=== PATIENT | male | born 1975 | race Caucasian/White ===

== ENCOUNTER 2019-09-09 08:58 | Emergency (ER) | payer MEDICAID ==
[~2019-09-09] VITALS: Ht 167.6 cm; Wt 75.0 kg
[~2019-09-09 08:58] MED LIST: CLIN-14 PO; IBUP-814 PO; NYST30CR2 TP
--- NOTE | 2019-09-09 09:16 | NUR ---
CHARTING DONE AT 0915 DONE BY ME ALMA ROSA NATH RN
[2019-09-09] MEDS ORDERED: ondansetron/PF 4mg/2ml inj IV ONE ×2 (09:20→10:25)
[2019-09-09] MEDS ORDERED: fentaNYL/PF 50MCG/1 ML 2ML syringe IV ONE ×2 (09:20→10:25)
[2019-09-09] MEDS ORDERED: iohexol 300mg/ml 100ml inj. ONE (09:26)
--- NOTE | 2019-09-09 09:30 | NUR ---
informed rita arauz of sb of 33, crash cart to bedside
[2019-09-09] MEDS ORDERED: proCHLORperazine 10 MG/2 ml inj IV ONE (09:40)
--- NOTE | 2019-09-09 09:55 | NUR ---
TO CT SCAN WITH PATIENT MONITORED
--- NOTE | 2019-09-09 10:00 | NUR ---
CALLED TO ER TO PREPARE FOR TRANSFER FOR NEUROSX
--- NOTE | 2019-09-09 10:05 | NUR ---
HEART RATE OF 35 SB AGAIN NOTED AND INFORMED BRIAN PEREZ AND DR CASAS AND INCREASING AND PERSISTENT HEAD PAIN, CRASH CART AT BEDSIDE, PACER PADS ON PATIENT
[2019-09-09 10:11] LABS: BASOPHILS % (AUTO) 0.3 % (0-1); EOSINOPHILS # (AUTO) 0.2 X10'3 (0-0.9); EOSINOPHILS % (AUTO) 1.8 % (0-6); HEMATOCRIT 46.2 % (42.0-52.0); HEMOGLOBIN 16.1 g/dl (14.0-17.9); LYMPHOCYTES # (AUTO) 2.1 X10'3 (1.1-4.8); LYMPHOCYTES % (AUTO) 20.8 % (21-51); MEAN CORPUSCULAR HEMOGLOBIN 29.6 PG (27.0-31.0); MEAN CORPUSCULAR HGB CONC 34.9 g/dL (33.0-36.5); MEAN CORPUSCULAR VOLUME 84.8 FL (78-98); MEAN PLATELET VOLUME 8.8 FL (7.4-10.4); MONOCYTES # (AUTO) 0.8 X10'3 (0-0.9); MONOCYTES % (AUTO) 7.7 % (2-12); NEUTROPHILS # (AUTO) 6.9 X10'3 (1.8-7.7); NEUTROPHILS % (AUTO) 69.4 % (42-75); PLATELET COUNT 276 X10'3 (140-440); RED BLOOD COUNT 5.45 X10'6 (4.70-6.10); RED CELL DISTRIBUTION WIDTH 13.9 % (11.5-14.5)
[2019-09-09 10:17] LABS: PARTIAL THROMBOPLASTIN TIME 25 SECONDS (22-32)
[2019-09-09 10:18] LABS: ALANINE AMINOTRANSFERASE 32 U/L (12-78); ALBUMIN 4.2 G/DL (3.4-5.0); ALBUMIN/GLOBULIN RATIO 1.4 (1.1-1.5); ALKALINE PHOSPHATASE 74 IU/L (46-116); ANION GAP 10 (8-16); ASPARTATE AMINO TRANSFERASE 24 U/L (10-37); BILIRUBIN,TOTAL 0.4 MG/DL (0.1-1.0); BLOOD UREA NITROGEN 18 MG/DL (7-18); BUN/CREATININE RATIO 16.1 (5.4-32.0); CALCIUM 8.7 MG/DL (8.5-10.1); CHLORIDE 105 MMOL/L (99-107); CREATININE 1.12 MG/DL (0.60-1.10); GLUCOSE 108 MG/DL (70-104); POTASSIUM 3.7 MMOL/L (3.5-5.1); SODIUM 139 MMOL/L (135-145); TOTAL CARBON DIOXIDE 23.6 MMOL/L (24-32); TOTAL PROTEIN 7.3 G/DL (6.4-8.2); eGFR 72 ML/MIN
[2019-09-09 10:27] LABS: AMYLASE 45 U/L (25-115); CREATINE KINASE 261 U/L (39-308); LIPASE 70 U/L (73-393); TROPONIN I < 0.04 NG/ML (0.0-0.05)
[2019-09-09 10:33] LABS: ETHANOL < 0.010 GM/DL (0.0-0.010)
[2019-09-09] MEDS ORDERED: atropine 1 MG/1 ML vial IV ONE (10:35)
--- NOTE | 2019-09-09 10:45 | NUR ---
PHONE REPORT TO [facility]. INFORMED OF CURRENT NEURO STATUS, PUPILS SLUGGISH/EQUAL, PATIENT NOW SLIGHTLY LETHARGIC: RECENTLY RECEIVED 100 MCG OF FENTANYL, LEFT ARM/LEFT LEG WEAKNESS: NO DECREASED SENSATION, DISCRIMINATION INTACT, RIGHT EYE BRUISING PERSISTENT UNRELENTING HTROBBING HEADACHE, NOW WORSE ON LEFT DISCUSSED LABS/ VITALS PATIENT CONDITION
[2019-09-09 11:00] VITALS: BP 124/86
--- NOTE | 2019-09-09 11:01 | NUR ---
TEMP SANDHU PLACED PRIOR TO LEAVING WITH MEDICS
--- NOTE | 2019-09-09 11:02 | NUR ---
REPORT TO EMS/MEDICS [facility]: PATIENT TRANSFERED TO [facility] FOR NEUROSX CONSULT, CALLED [facility] BACK TO INFORM HIM OF RIGHT AIR IN CHEST PER CT, NO SUBCUTANEOUS AIR PALPATED
== END 2019-09-09 11:01 | disposition short-term general hospital (02) ==
LOC: ER 08:58
DX: S06.4X1A Epidural hemorrhage with loss of consciousness of 30 minutes or less, initial encounter (principal); R10.11 Right upper quadrant pain; G89.29 Other chronic pain; F12.90 Cannabis use, unspecified, uncomplicated; Z59.0 Homelessness; W11.XXXA Fall on and from ladder, initial encounter; Y93.89 Activity, other specified; Y92.69 Other specified industrial and construction area as the place of occurrence of the external cause; Y99.9 Unspecified external cause status
CPT/HCPCS: 36415; 70450; 71260; 72125; 74177; 80053; 80320; 82150; 82550; 83690; 84484; 85025; 85610; 85730; 86885; 86900; 86901; 96374; 96375; 96376; 99291; J0780; J2405; J3010; Q9967; J0461

== ENCOUNTER 2020-04-09 12:32 | Day surgery (SDC) | payer OTHER ==
[~2020-04-09] VITALS: Ht 167.6 cm; Wt 71.3 kg
[2020-04-09 12:45] VITALS: BP 135/91
[2020-04-09] MEDS ORDERED: normal saline 1000ml 1,000 ML IV SCH (12:55)
[2020-04-09] MEDS ORDERED: diphenhydrAMINE 25mg capsule PO ONE (12:55)
[2020-04-09] MEDS ORDERED: LIDOcaine 1% W/epiNEPHrine 1:100,000 20ml vial ONE (13:03)
[2020-04-09] MEDS ORDERED: midazolam 2 mg/2 ml injection ONE ×3 (13:03→14:19)
[2020-04-09] MEDS ORDERED: fentaNYL/PF 50MCG/1 ML 2ML syringe ONE (13:03)
[2020-04-09] MEDS ORDERED: IBUP-24 PO (13:18)
[2020-04-09 13:29] LABS: BASOPHILS # (AUTO) 0.1 X10'3 (0-0.2); EOSINOPHILS # (AUTO) 0.1 X10'3 (0-0.9); EOSINOPHILS % (AUTO) 1.2 % (0-6); HEMATOCRIT 44.4 % (42.0-52.0); HEMOGLOBIN 15.3 g/dl (14.0-17.9); LYMPHOCYTES # (AUTO) 2.3 X10'3 (1.1-4.8); LYMPHOCYTES % (AUTO) 25.9 % (21-51); MEAN CORPUSCULAR HEMOGLOBIN 30.1 PG (27.0-31.0); MEAN CORPUSCULAR HGB CONC 34.4 g/dL (33.0-36.5); MEAN CORPUSCULAR VOLUME 87.4 FL (78-98); MEAN PLATELET VOLUME 8.7 FL (7.4-10.4); MONOCYTES # (AUTO) 0.6 X10'3 (0-0.9); NEUTROPHILS # (AUTO) 5.8 X10'3 (1.8-7.7); NEUTROPHILS % (AUTO) 64.9 % (42-75); PLATELET COUNT 266 X10'3 (140-440); RED BLOOD COUNT 5.08 X10'6 (4.70-6.10); RED CELL DISTRIBUTION WIDTH 13.4 % (11.5-14.5); WHITE BLOOD COUNT 8.9 X10'3 (4.5-11.0)
[2020-04-09 13:33] LABS: ALBUMIN 2.7 G/DL (3.4-5.0); ANION GAP 8 (8-16); BLOOD UREA NITROGEN 15 MG/DL (7-18); BUN/CREATININE RATIO 13.5 (5.4-32.0); CALCIUM 8.9 MG/DL (8.5-10.1); CHLORIDE 108 MMOL/L (99-107); CREATININE 1.11 MG/DL (0.60-1.10); GLUCOSE 90 MG/DL (70-104); MAGNESIUM 2.1 MG/DL (1.5-2.4); SODIUM 142 MMOL/L (135-145); eGFR 72 ML/MIN
[2020-04-09 14:40] VITALS: BP 119/76
[2020-04-09 14:45] VITALS: BP 126/82
[2020-04-09 15:00] VITALS: BP 114/82
[2020-04-09 15:15] VITALS: BP 121/90
[2020-04-09 15:45] VITALS: BP 134/85
== END 2020-04-09 16:00 | disposition home or self-care (01) ==
LOC: SSTAY O 12:32
PROVIDERS: ATTEND Internal Medicine Cardiovascular Disease
DX: I49.8 Other specified cardiac arrhythmias (principal); Z72.0 Tobacco use; R42 Dizziness and giddiness; Z87.820 Personal history of traumatic brain injury
CPT/HCPCS: 33286; 36415; 80048; 83735; 85025; 85610; J2250; J3010; 93005; 99152; A4620

== ENCOUNTER → 2023-12-08 | Outpatient (CLI) | payer MEDICAID ==
[~2023-12-08] MED LIST changes: +IBUP-24 PO; -NYST30CR2 TP; +NYST30CR34 TP
== END | disposition home or self-care (01) ==
LOC: RAD 15:13
PROVIDERS: ATTEND Family Medicine
DX: M54.50 Low back pain, unspecified (principal)
CPT/HCPCS: 72110

== ENCOUNTER 2024-12-02 16:31 | Emergency (ER) | payer MEDICAID ==
[~2024-12-02] VITALS: Ht 167.6 cm; Wt 78.5 kg
[~2024-12-02 16:31] MED LIST changes: +NYST30CR28 TP; -NYST30CR34 TP
[2024-12-02 17:13] LABS: BASOPHILS # (AUTO) 0.1 X10'3 (0-0.2); BASOPHILS % (AUTO) 0.4 % (0-1); EOSINOPHILS # (AUTO) 0.1 X10'3 (0-0.9); EOSINOPHILS % (AUTO) 0.5 % (0-6); HEMATOCRIT 45.8 % (42.0-52.0); HEMOGLOBIN 15.7 g/dl (14.0-17.9); LYMPHOCYTES % (AUTO) 14.9 % (21-51); MEAN CORPUSCULAR HEMOGLOBIN 30.1 PG (27.0-31.0); MEAN CORPUSCULAR HGB CONC 34.2 g/dL (33.0-36.5); MEAN PLATELET VOLUME 8.5 FL (7.4-10.4); MONOCYTES # (AUTO) 0.8 X10'3 (0-0.9); MONOCYTES % (AUTO) 6.3 % (2-12); NEUTROPHILS # (AUTO) 10.3 X10'3 (1.8-7.7); NEUTROPHILS % (AUTO) 77.9 % (42-75); PLATELET COUNT 342 X10'3 (140-440); RED CELL DISTRIBUTION WIDTH 14.1 % (11.5-14.5); WHITE BLOOD COUNT 13.2 X10'3 (4.5-11.0)
[2024-12-02] MEDS: aspirin 81mg tab.chew PO ONE (17:18)
[2024-12-02 17:26] LABS: ALANINE AMINOTRANSFERASE 33 U/L (12-78); ALBUMIN 4.1 G/DL (3.4-5.0); ALBUMIN/GLOBULIN RATIO 1.5 (1.1-1.5); ALKALINE PHOSPHATASE 86 IU/L (46-116); ANION GAP 5 (8-16); ASPARTATE AMINO TRANSFERASE 21 U/L (10-37); BILIRUBIN,TOTAL 0.6 MG/DL (0.1-1.0); BLOOD UREA NITROGEN 11 MG/DL (7-18); BUN/CREATININE RATIO 10.7 (10.0-20.0); CALCIUM 8.9 MG/DL (8.5-10.1); CHLORIDE 104 MMOL/L (99-107); CREATININE 1.03 MG/DL (0.60-1.10); GLUCOSE 102 MG/DL (70-104); POTASSIUM 4.1 MMOL/L (3.5-5.1); SODIUM 138 MMOL/L (135-145); TOTAL CARBON DIOXIDE 29.3 MMOL/L (24-32); TOTAL PROTEIN 6.8 G/DL (6.4-8.2); eCRCL 79 ML/MIN; eGFR 77 ML/MIN
[2024-12-02 17:33] LABS: LIPASE 24 U/L (16-77); MAGNESIUM 1.8 MG/DL (1.5-2.4); PRO BRAIN NATRIURETIC PEPTIDE < 30 PG/ML (0-125)
[2024-12-02] MEDS: ondansetron 4mg rapidly disintigrating tab PO ONE (19:27)
[2024-12-02] MEDS: HYDROcodone/acetaminophen 5mg/325mg tablet PO ONE (19:28)
[2024-12-02] MEDS: LIDOcaine 2% Viscous 15ml cup MM ONE (19:28)
[2024-12-02] MEDS: mag hydrox/Alum hydrox/simeth 30ml oral suspension PO ONE (19:28)
[2024-12-02 19:57] LABS: D-DIMER < 0.19 MG/L FEU (0-0.50)
[2024-12-02 21:14] VITALS: BP 165/107; PULSE 62; RESP 18; TEMP 98.4; O2SAT 97
[2024-12-02 21:23] LABS: BILIRUBIN,URINE NEGATIVE (Neg); CLARITY,URINE CLEAR (Clear); COLOR,URINE YELLOW (Yellow); GLUCOSE, URINE NEGATIVE (Neg); KETONES,URINE NEGATIVE (Neg); LEUKOCYTE ESTERASE ,URINE NEGATIVE (Neg); NITRITES, URINE NEGATIVE (Neg); OCCULT BLOOD,URINE SMALL (Neg); PROTEIN,URINE NEGATIVE (Neg); UROBILINOGEN,URINE 0.2 E.U/dL (0.2-1.0)
[2024-12-02 21:24] LABS: UA COLLECTION TYPE CLN CATCH MIDSTREAM
[2024-12-02 21:37] LABS: BACTERIA,URINE NONE SEEN /HPF (Neg); RBC,URINE 0-2 /HPF (0-2); SQUAMOUS EPITHELIAL CELL,UR FEW /LPF (FEW); WBC,URINE 0-4 /HPF (0-4)
== END 2024-12-02 21:18 | disposition home or self-care (01) ==
LOC: ER 16:32
DX: R07.89 Other chest pain (principal); F17.200 Nicotine dependence, unspecified, uncomplicated; G89.29 Other chronic pain; M54.9 Dorsalgia, unspecified; F12.90 Cannabis use, unspecified, uncomplicated; F10.10 Alcohol abuse, uncomplicated; Y90.9 Presence of alcohol in blood, level not specified; Z59.00 Homelessness unspecified; Z88.5 Allergy status to narcotic agent; Z79.1 Long term (current) use of non-steroidal anti-inflammatories (NSAID); Z79.899 Other long term (current) drug therapy
CPT/HCPCS: 36415; 71045; 80053; 81001; 83690; 83735; 83880; 84484; 85025; 85379; 93005; 99285

== ENCOUNTER 2025-02-15 14:01 | Outpatient (CLI) | payer MEDICAID ==
--- NOTE | 2025-02-15 21:27 | VASCULAR REPORT ---
CLINICAL HISTORY: Increasing pain in the left leg TECHNIQUE: Color and duplex doppler imaging of the left lower extremity veins was performed. Vessel c ompression if possible was also performed. WID: COMPARISON: None FINDINGS: Right common femoral vein: Normal flow and phasicity. Left common femoral vein: Normal compressibility and flow. Left femoral vein: Normal compressibility and flow. Left popliteal vein: Normal compressibility and flow. Proximal calf veins are normally compressible. IMPRESSION: NO SONOGRAPHIC EVIDENCE FOR DEEP VENOUS THROMBOSIS IN THE LEFT LOWER EXTREMITY VEINS.
== END 2025-02-15 23:59 | disposition home or self-care (01) ==
LOC: VAS 14:01
PROVIDERS: ATTEND Family Medicine
DX: M79.605 Pain in left leg (principal)
CPT/HCPCS: 93971

== ENCOUNTER 2025-06-13 08:36 | Outpatient (CLI) | payer MEDICAID ==
[2025-06-13] MEDS ORDERED: iohexol 300mg/ml 100ml inj. ONE (09:30)
--- NOTE | 2025-06-13 11:06 | RADIOLOGY REPORT ---
Exam: CT CT ABDOMEN W/ IV CONTRAST History: EMBOLISM AND THROMBOSIS OF OTHER ARTERIES Comparison Study: none Technique: Multidetector spiral CT of the abdomen was performed from lung bases to iliac crest. 100 cc of intravenous contrast was administered during this examination. Portal venous imaging was obtained. Axial, coronal and sagittal multiplanar reformats were performed by the technologist on a separate workstation. Radiation Dose : CT Dose: CTDI volume is 23.9 mGy. Dose-length product is 730.2 mGy*cm Findings: Lung Bases: No acute or significant lung base finding. Normal heart size. No pleural or pericardial effusion. Liver: Hepatic steatosis. Hepatomegaly. Hyperattenuating lesions are present in the liver measuring 1.6 cm in the right hepatic lobe, segment 8 and 0.3 cm in segment 4B. Gallbladder and Biliary Tree: Unremarkable Spleen: Unremarkable Pancreas: The pancreas is normal in appearance without focal lesions or abnormal enhancement. Adrenal Glands: Unremarkable Kidneys: Kidneys demonstrate normal symmetric enhancement without focal lesions, calculi or hydronephrosis. Visualized Bowel: The stomach is grossly normal in appearance. Mild diffuse thickening of the colon. Ascites: Absent Lymphadenopathy: No mesenteric, retroperitoneal or periportal lymphadenopathy. Abdominal Wall and Mesentery: Unremarkable. Vasculature: The visualized abdominal aorta is normal in size and caliber. Abdominal and pelvic vessels demonstrate normal enhancement. Musculoskeletal: Degenerative changes of the spine. IMPRESSION: Mild diffuse thickening of the colon. Correlate for colitis. Hepatic steatosis and hepatomegaly. Hyperattenuating lesions in the liver measuring up to 1.6 cm. These are incompletely characterized on this examination but may be benign. Recommend further evaluation with nonemergent MRI of the abdomen with and without contrast. Radiation optimization: All CT scans at this facility use at least one of these dose optimization techniques: automated exposure control mA and/or kV adjustment per patient size (includes targeted exams where dose is matched to clinical indication) or iterative reconstruction.
== END 2025-06-13 23:59 | disposition home or self-care (01) ==
LOC: RAD 08:36
PROVIDERS: ATTEND Family Medicine
DX: K76.0 Fatty (change of) liver, not elsewhere classified (principal); I74.8 Embolism and thrombosis of other arteries; R16.0 Hepatomegaly, not elsewhere classified; K52.9 Noninfective gastroenteritis and colitis, unspecified
CPT/HCPCS: 74177; Q9967